=== PATIENT | male | born 1975 | race Caucasian/White ===

== ENCOUNTER 2018-07-20 12:27 | Outpatient (CLI) | payer OTHER | END 2018-07-20 13:42 | disposition home or self-care (01) | LOC: LAB 12:27 | DX: J11.1 Influenza due to unidentified influenza virus with other respiratory manifestations (principal); J06.9 Acute upper respiratory infection, unspecified ==

== ENCOUNTER 2019-08-04 11:35 | Emergency (ER) | payer OTHER ==
[~2019-08-04] VITALS: Ht 162.6 cm; Wt 71.2 kg
== END 2019-08-04 18:31 | disposition home or self-care (01) ==
LOC: EMR PED 11:35 → ER 11:35
DX: S61.422A Laceration with foreign body of left hand, initial encounter (principal); W26.0XXA Contact with knife, initial encounter; Y93.G9 Activity, other involving cooking and grilling; Y92.89 Other specified places as the place of occurrence of the external cause; Y99.8 Other external cause status

== ENCOUNTER → 2021-02-10 | Emergency (ER) | payer OTHER ==
[~2021-02-10] VITALS: Ht 162.6 cm; Wt 67.1 kg
[~2021-02-10] MED LIST: [UNRECOGNIZED DRUG - OTHER]
== END | disposition home or self-care (01) ==
LOC: ER 16:12
DX: I21.4 Non-ST elevation (NSTEMI) myocardial infarction (principal)